=== PATIENT | male | born 1960 | race Caucasian/White ===

== ENCOUNTER 2020-12-29 09:08 | Inpatient (IN) ==
[2020-12-29] MEDS ORDERED: DEXTROSE 50% 25 GM/50 ML VIAL IV PRN (09:27)
[2020-12-29] MEDS ORDERED: GLUCAGON 1 MG VIAL IM PRN (09:27)
[2020-12-29] MEDS ORDERED: CLORAZEPATE 3.75 MG TABLET PO PRN (09:36)
[2020-12-29] MEDS ORDERED: NITROGLYCERIN SL 0.4 MG TABLET SL PRN (09:36)
[2020-12-29] MEDS ORDERED: MORPHINE 2 MG/1 ML SYRINGE IV PRN (09:36)
[2020-12-29 10:06] LABS: Basophils # 0.1 10*3/uL (0.0-0.2); Basophils % 1.1 % (0.0-0.8); Eosinophils # 0.3 10*3/uL (0.0-0.87); Eosinophils % 5.3 % (0.00-10.9); Hematocrit 46.8 VOL% (42.0-52.0); Hemoglobin 15.8 GM/DL (14.0-18.0); Immature Granulocytes % 0.4 %; Immature Granulocytes Absolute 0.02 #; Lymphocytes # 1.2 10*3/uL (1.4-4.0); Mean Corpuscular HGB Conc 33.8 GM/DL (32-36); Mean Corpuscular Volume 91.6 FL (87-102); Mean Platelet Volume 9.5 FL (9.6-12.0); Monocytes % 8.1 % (1.7-12.7); Neutrophils % 59.1 % (38.7-73.9); Platelet Count 284 T/CUMM (130-400); Red Blood Count 5.11 MC/CUMM (3.8-5.5); Red Cell Distribution Width 13.1 % (9.3-17.3); White Blood Count 4.7 T/CUMM (4-12)
[2020-12-29] MEDS: CHLORHEXIDINE 0.12% ORAL RINSE 60 ML BOTTLE SWISH/SPIT SCH ×2 (10:14→21:29)
[2020-12-29 10:42] LABS: Albumin 3.9 G/DL (3.4-5.0); Bilirubin,Total 0.4 MG/DL (0.20-1.00); Calcium 8.5 MG/DL (8.5-10.1); Osmolality,Calculated 273.8 MOS/KG (273-304); Potassium 3.9 MMOL/L (3.5-5.1); Total Protein 6.8 G/DL (6.4-8.2)
[2020-12-29] MEDS: INSULIN REGULAR 100 UNIT/ML SUBCUT SCH ×3 (11:17→21:30)
[2020-12-29] MEDS ORDERED: oxyCODONE/ACETAMINOPHEN 5-325 MG TABLET PO PRN (12:18)
[2020-12-29 13:25] LABS: ABG Base Excess 0.9 MMOL/L (-2.5-2.5); ABG HCO3 25.1 MMOL/L (20-26); ABG Oxygen Saturation 96.1 % (95-100); ABG PCO2 38.7 MM HG (35-48); ABG PH 7.429 (7.35-7.45); ABG PO2 82.6 MM HG (80-95); ABG TCO2 26.2 MMOL/L (23-27)
[2020-12-29] MEDS: CHLORHEXIDINE 4% SOLN 118 ML BOTTLE TOP SCH ×2 (15:02→21:30)
[2020-12-30] MEDS ORDERED: PAPAVERINE 60 MG/2 ML VIAL ONE (05:00)
[2020-12-30] MEDS ORDERED: CEFUROXIME INJ 1,500 MG in SODIUM CHLORIDE 0.9% 100 ML IV ONE (05:00)
[2020-12-30] MEDS ORDERED: VANCOMYCIN 1,000 MG VIAL ONE (05:01)
[2020-12-30] MEDS ORDERED: VANCOMYCIN 500 MG VIAL ONE (05:01)
[2020-12-30] MEDS ORDERED: LACTATED RINGERS 1,000 ML IV ONE ×2 (05:45→11:30)
[2020-12-30] MEDS ORDERED: CALCIUM CHLORIDE 1,000 MG/10 ML VIAL IV ONE (05:45)
[2020-12-30] MEDS ORDERED: ETOMIDATE 40 MG/20 ML VIAL IV ONE (05:45)
[2020-12-30] MEDS ORDERED: VECURONIUM 10 MG VIAL IV ONE ×4 (05:45→11:44)
[2020-12-30] MEDS ORDERED: LIDOCAINE 2% 5 ML VIAL ONE ×2 (05:45→10:35)
[2020-12-30] MEDS ORDERED: SODIUM CHLORIDE 0.9% 1,000 ML IV ONE ×2 (05:45→11:43)
[2020-12-30] MEDS ORDERED: MIDAZOLAM 10 MG/2 ML VIAL ONE ×4 (05:45→10:10)
[2020-12-30] MEDS ORDERED: SEVOFLURANE 1 UNIT/15 MINUTE INH ONE ×2 (05:45→11:42)
[2020-12-30] MEDS ORDERED: SUFentanil 250 MCG/5 ML AMP ONE ×2 (05:46→05:58)
[2020-12-30] MEDS ORDERED: AMINOCAPROIC ACID 5,000 MG/20 ML VIAL ONE ×2 (05:48→11:44)
[2020-12-30] MEDS ORDERED: FAMOTIDINE 20 MG TABLET PO ONE (06:00)
[2020-12-30] MEDS ORDERED: DIAZEPAM 5 MG TABLET PO ONE (06:00)
[2020-12-30 07:40] LABS: ABG Base Excess -0.5 MMOL/L (-2.5-2.5); ABG HCO3 25.4 MMOL/L (20-26); ABG Oxygen Saturation 99.3 % (95-100); ABG PCO2 46.7 MM HG (35-48); ABG PH 7.354 (7.35-7.45); ABG PO2 463.6 MM HG (80-95); ABG TCO2 26.9 MMOL/L (23-27); Glucose Heart Surgery 99 MG/DL (74-106); Hemoglobin Heart Surgery 14.7 G/DL (14.0-18.0); PCO2 Patient Temp Arterial 46.7 MMHG; PH Patient Temp Arterial 7.354; PO2 Patient Temp Arterial 463.6 MM HG; Patient Temperature 37 CELCIUS; Potassium Heart/CVR 3.8 MMOL/L (3.5-5.1); Sodium Heart/CVR 138 MMOL/L (135-145)
[2020-12-30] MEDS ORDERED: ePHEDrine 50 MG/ML VIAL ONE (07:42)
[2020-12-30 07:44] LABS: Bacteria,Urine Occasional /HPF (Few); Bilirubin,Urine Negative (Negative); Blood, Urine Negative (Negative); Glucose,Urine (UA) Negative (Negative); Ketones,Urine Negative (Negative); Nitrite,Urine Negative (Negative); Protein,Urine Negative; RBC,Urine <1 /HPF (0-4); Urine Appearance CLEAR (Clear); Urine Color Yellow (Yellow); Urine Specific Gravity 1.012 (1.001-1.035); Urine Urobilinogen < 2.0 EU/DL (0.2-1.0)
[2020-12-30] MEDS ORDERED: NITROPRUSSIDE 50 MG/2 ML VIAL ONE (08:37)
[2020-12-30] MEDS ORDERED: SODIUM BICARBONATE 50 MEQ/50 ML VIAL IV ONE ×2 (08:37→10:36)
[2020-12-30] MEDS ORDERED: PHENYLEPHRINE DRIP 40 MG/250 ML PREMIX IV ONE (08:38)
[2020-12-30] MEDS ORDERED: POTASSIUM CHLORIDE RIDER 20 MEQ/100 ML PREMIX IV ONE (08:38)
[2020-12-30] MEDS ORDERED: CALCIUM CHLORIDE 1,000 MG/10 ML SYRINGE IV ONE (08:38)
[2020-12-30] MEDS ORDERED: ALBUMIN 5% 25.0 GM/500 ML VIAL IV ONE (08:39)
[2020-12-30 09:02] LABS: Hematocrit Heart Surgery 31.4 PERCENT (42-52); Hemoglobin Heart Surgery 10.2 G/DL (14.0-18.0); PCO2 Patient Temp Venous 36.8 MM HG; PH Patient Temp Venous 7.436; PO2 Patient Temp Venous 39.8 MM HG; Potassium Heart/CVR 5.1 MMOL/L (3.5-5.1); VBG Base Excess 0.8 MEQ/L (0-4); VBG HCO3 24.8 MEQ/L (24-28); VBG Oxygen Saturation 77.7 %; VBG PCO2 40.5 MMHG (41-51); VBG PH 7.407; VBG PO2 45.7 MMHG (17-40); VBG Total CO2 23.2 MMOL/L
[2020-12-30 09:37] LABS: Hematocrit Heart Surgery 36.6 PERCENT (42-52); Hemoglobin Heart Surgery 11.9 G/DL (14.0-18.0); PCO2 Patient Temp Venous 33.3 MM HG; PH Patient Temp Venous 7.482; PO2 Patient Temp Venous 40.1 MM HG; Potassium Heart/CVR 5.1 MMOL/L (3.5-5.1); VBG Base Excess 1.9 MEQ/L (0-4); VBG HCO3 25.8 MEQ/L (24-28); VBG Oxygen Saturation 83.9 %; VBG PCO2 38.4 MMHG (41-51); VBG PH 7.438; VBG PO2 49.3 MMHG (17-40); VBG Total CO2 23.1 MMOL/L
[2020-12-30] MEDS ORDERED: THROMBIN TOPICAL (RECOMBINANT) 5,000 UNIT VIAL TOP ONE (09:53)
[2020-12-30 10:07] LABS: Hematocrit Heart Surgery 39.2 PERCENT (42-52); Hemoglobin Heart Surgery 12.7 G/DL (14.0-18.0); PCO2 Patient Temp Venous 37.3 MM HG; PH Patient Temp Venous 7.449; Potassium Heart/CVR 5.6 MMOL/L (3.5-5.1); VBG HCO3 25.7 MEQ/L (24-28); VBG Oxygen Saturation 74.6 %; VBG PCO2 37.3 MMHG (41-51); VBG PH 7.449; VBG Total CO2 22.7 MMOL/L
[2020-12-30] MEDS ORDERED: PROTAMINE SULFATE 250 MG/25 ML VIAL IV ONE (10:35)
[2020-12-30] MEDS ORDERED: ALBUMIN 25% 25 GM/100 ML VIAL IV ONE (10:35)
[2020-12-30] MEDS ORDERED: MAGNESIUM SULFATE 5 GM/10 ML VIAL IV ONE (10:35)
[2020-12-30] MEDS ORDERED: methylPREDNISolone SOD SUC 1,000 MG/8 ML VIAL ONE (10:35)
[2020-12-30] MEDS ORDERED: DEXTROSE 5% KCL 20 MEQ 20 MEQ/1,000 ML BAG IV ONE (10:35)
[2020-12-30] MEDS ORDERED: MANNITOL 100 GM/500 ML BAG IV ONE (10:35)
[2020-12-30] MEDS ORDERED: PROTAMINE SULFATE 50 MG/5 ML VIAL IV ONE (10:36)
[2020-12-30] MEDS ORDERED: FUROSEMIDE 20 MG/2 ML VIAL ONE (10:36)
[2020-12-30] MEDS ORDERED: HEPARIN 10,000 UNIT/10 ML VIAL ONE (10:36)
[2020-12-30 10:41] LABS: ABG Base Excess -2.4 MMOL/L (-2.5-2.5); ABG HCO3 22.6 MMOL/L (20-26); ABG Oxygen Saturation 96.9 % (95-100); ABG PCO2 39.9 MM HG (35-48); ABG PH 7.371 (7.35-7.45); ABG PO2 99.4 MM HG (80-95); ABG TCO2 23.8 MMOL/L (23-27); Glucose Heart Surgery 158 MG/DL (74-106); Hemoglobin Heart Surgery 12.6 G/DL (14.0-18.0); Ionized Calcium Arterial 1.13 MMOL/L (1.21-1.46); PCO2 Patient Temp Arterial 39.9 MMHG; PH Patient Temp Arterial 7.371; PO2 Patient Temp Arterial 99.4 MM HG; Patient Temperature 37 CELCIUS; Potassium Heart/CVR 4.3 MMOL/L (3.5-5.1); Sodium Heart/CVR 134 MMOL/L (135-145)
[2020-12-30] MEDS ORDERED: MINERAL OIL/PETROLATUM OPH OINT 3.5 GM TUBE ONE (11:42)
[2020-12-30] MEDS ORDERED: SODIUM CHLORIDE 0.9% 300 ML IV ONE (11:43)
[2020-12-30] MEDS ORDERED: SODIUM CHLORIDE 0.9% 250 ML IV ONE (11:44)
[2020-12-30] MEDS ORDERED: HEPARIN/NACL 0.9% 2 UNITS/ML 1,000 UNIT/500 ML BAG IV ONE (11:45)
[2020-12-30] MEDS ORDERED: ONDANSETRON 4 MG/2 ML VIAL IV PRN (11:46)
[2020-12-30] MEDS ORDERED: NITROPRUSSIDE 100 MG in DEXTROSE 5% 250 ML IV PRN (11:46)
[2020-12-30] MEDS ORDERED: PHENYLEPHRINE DRIP 40 MG/250 ML PREMIX IV PRN (11:46)
[2020-12-30] MEDS ORDERED: MIDAZOLAM 2 MG/2 ML VIAL IV PRN (11:46)
[2020-12-30] MEDS ORDERED: SODIUM CHLORIDE 0.45% 1,000 ML IV SCH ×2 (11:46)
[2020-12-30] MEDS ORDERED: VECURONIUM 10 MG VIAL IV PRN ×2 (11:46)
[2020-12-30] MEDS ORDERED: INSULIN REGULAR 100 UNIT/ML IV PRN (11:46)
[2020-12-30] MEDS ORDERED: DEXTROSE 50% 25 GM/50 ML VIAL IV PRN ×2 (11:46)
[2020-12-30] MEDS ORDERED: ACETAMINOPHEN 650 MG SUPP RECTAL PRN (11:46)
[2020-12-30] MEDS ORDERED: CHLORHEXIDINE 4% SOLN 118 ML BOTTLE TOP PRN (11:46)
[2020-12-30] MEDS ORDERED: INSULIN REGULAR 100 UNIT/ML IV ONE (11:46)
[2020-12-30] MEDS ORDERED: LACTATED RINGERS 250 ML IV PRN (11:46)
[2020-12-30] MEDS ORDERED: MAGNESIUM SULF RIDER 2 GM/50 ML PREMIX IV PRN (11:46)
[2020-12-30] MEDS ORDERED: MAGNESIUM SULF RIDER 4 GM/100 ML PREMIX IV PRN (11:46)
[2020-12-30] MEDS ORDERED: MIDAZOLAM 10 MG/2 ML VIAL IV PRN (11:46)
[2020-12-30] MEDS ORDERED: CALCIUM CHLORIDE 1,000 MG/10 ML SYRINGE IV PRN (11:46)
[2020-12-30] MEDS ORDERED: INSULIN REGULAR DRIP 100 ML IV SCH (11:46)
[2020-12-30] MEDS ORDERED: PHENYLEPHRINE DRIP 20 MG/250 ML PREMIX IV ONE (11:47)
[2020-12-30 11:56] LABS: ABG Base Excess -2.8 MMOL/L (-2.5-2.5); ABG HCO3 22.1 MMOL/L (20-26); ABG Oxygen Saturation 98.7 % (95-100); ABG PCO2 40.3 MM HG (35-48); ABG PH 7.356 (7.35-7.45); ABG TCO2 19.6 MMOL/L (23-27); Glucose Heart Surgery 149 MG/DL (74-106); Hematocrit Heart Surgery 41.9 PERCENT (42-52); Hemoglobin Heart Surgery 13.6 G/DL (14.0-18.0); Potassium Heart/CVR 3.8 MMOL/L (3.5-5.1)
[2020-12-30 12:05] LABS: Basophils % 0.3 % (0.0-0.8); Eosinophils # 0.1 10*3/uL (0.0-0.87); Eosinophils % 1.5 % (0.00-10.9); Hematocrit 41.2 VOL% (42.0-52.0); Immature Granulocytes % 0.6 %; Immature Granulocytes Absolute 0.04 #; Lymphocytes # 0.8 10*3/uL (1.4-4.0); Lymphocytes % 11.5 % (21.2-54.2); Mean Corpuscular HGB Conc 33.5 GM/DL (32-36); Mean Corpuscular Volume 92.2 FL (87-102); Mean Platelet Volume 9.6 FL (9.6-12.0); Neutrophils % 80.1 % (38.7-73.9); Platelet Count 274 T/CUMM (130-400); Red Blood Count 4.47 MC/CUMM (3.8-5.5); Red Cell Distribution Width 13.1 % (9.3-17.3)
[2020-12-30 12:11] LABS: Hemoglobin 13.8 GM/DL (14.0-18.0); White Blood Count 6.5 T/CUMM (4-12)
[2020-12-30] MEDS: POTASSIUM CHLORIDE RIDER 20 MEQ/100 ML PREMIX IV PRN ×4 (12:33→22:37)
[2020-12-30 12:47] LABS: Albumin 3.2 G/DL (3.4-5.0); Bilirubin,Total 0.7 MG/DL (0.20-1.00); Calcium 7.7 MG/DL (8.5-10.1); Osmolality,Calculated 282.3 MOS/KG (273-304); Total Protein 5.4 G/DL (6.4-8.2)
[2020-12-30 12:49] LABS: INR 1.1; PT Patient Result 12.5 SECS (10.5-12.0); Partial Thromboplastin Time 26.5 SECS (23.9-33.8)
[2020-12-30 13:00] LABS: CKMB % 3.7 %
[2020-12-30] MEDS ORDERED: AMIODARONE 200 MG TABLET PO ONE (13:00)
[2020-12-30 13:06] LABS: High Sensitive Troponin I* 5911.2 ng/L (0-78)
[2020-12-30] MEDS: POTASSIUM CHLORIDE RIDER 10 MEQ/100 ML PREMIX IV PRN ×2 (13:55→21:15)
[2020-12-30] MEDS: LACTATED RINGERS 1,000 ML IV PRN ×2 (14:00→17:30)
[2020-12-30 14:37] LABS: ABG Base Excess -2.2 MMOL/L (-2.5-2.5); ABG HCO3 22.5 MMOL/L (20-26); ABG Oxygen Saturation 97.9 % (95-100); ABG PCO2 46.7 MM HG (35-48); ABG PH 7.323 (7.35-7.45); ABG TCO2 21.2 MMOL/L (23-27); Glucose Heart Surgery 167 MG/DL (74-106); Hematocrit Heart Surgery 42.2 PERCENT (42-52); Hemoglobin Heart Surgery 13.8 G/DL (14.0-18.0); Potassium Heart/CVR 4.4 MMOL/L (3.5-5.1)
[2020-12-30 15:32] LABS: ABG Base Excess -3.1 MMOL/L (-2.5-2.5); ABG HCO3 21.9 MMOL/L (20-26); ABG Oxygen Saturation 97.3 % (95-100); ABG PCO2 40.8 MM HG (35-48); ABG PH 7.348 (7.35-7.45); ABG TCO2 19.4 MMOL/L (23-27); Glucose Heart Surgery 196 MG/DL (74-106); Hematocrit Heart Surgery 43.3 PERCENT (42-52); Hemoglobin Heart Surgery 14.1 G/DL (14.0-18.0); Potassium Heart/CVR 4.4 MMOL/L (3.5-5.1)
[2020-12-30] MEDS: ALBUMIN 5% 12.5 GM/250 ML VIAL IV PRN ×2 (15:34→16:03)
[2020-12-30] MEDS ORDERED: FUROSEMIDE 40 MG/4 ML VIAL ONE (18:30)
[2020-12-30] MEDS ORDERED: FUROSEMIDE 40 MG/4 ML VIAL IV ONE (18:30)
[2020-12-30] MEDS ORDERED: FUROSEMIDE 40 MG/4 ML VIAL IV PRN (19:33)
[2020-12-30] MEDS: CEFUROXIME INJ 1,500 MG in SODIUM CHLORIDE 0.9% 100 ML IV SCH (19:43)
[2020-12-30] MEDS: KETOROLAC 30 MG/1 ML VIAL IV SCH (19:46)
[2020-12-30 20:19] LABS: ABG Base Excess -1.6 MMOL/L (-2.5-2.5); ABG HCO3 23.1 MMOL/L (20-26); ABG PCO2 35.3 MM HG (35-48); ABG PH 7.413 (7.35-7.45); ABG PO2 87.3 MM HG (80-95); Glucose Heart Surgery 173 MG/DL (74-106); Hemoglobin Heart Surgery 11.7 G/DL (14.0-18.0); Potassium Heart/CVR 3.6 MMOL/L (3.5-5.1)
[2020-12-30] MEDS: SODIUM CHLORIDE 0.9% 1,000 ML IV SCH (20:23)
[2020-12-30] MEDS: INSULIN REGULAR 100 UNIT/ML SUBCUT SCH (20:23)
[2020-12-30] MEDS: CHLORHEXIDINE 0.12% ORAL RINSE 60 ML BOTTLE SWISH/SPIT SCH ×2 (20:24→20:42)
[2020-12-30] MEDS: CHLORHEXIDINE 4% SOLN 118 ML BOTTLE TOP SCH (20:24)
[2020-12-30 20:55] LABS: CKMB % 4.6 %
[2020-12-30] MEDS ORDERED: AMIODARONE 200 MG TABLET PO SCH (21:00)
[2020-12-30 21:02] LABS: High Sensitive Troponin I* 4930.3 ng/L (0-78)
[2020-12-30 22:14] LABS: ABG Base Excess -2.5 MMOL/L (-2.5-2.5); ABG HCO3 22.3 MMOL/L (20-26); ABG Oxygen Saturation 98.2 % (95-100); ABG PCO2 41.2 MM HG (35-48); ABG PH 7.354 (7.35-7.45); ABG TCO2 20.5 MMOL/L (23-27); Glucose Heart Surgery 151 MG/DL (74-106); Hematocrit Heart Surgery 36.5 PERCENT (42-52); Hemoglobin Heart Surgery 11.9 G/DL (14.0-18.0); Potassium Heart/CVR 4.1 MMOL/L (3.5-5.1)
[2020-12-30 23:22] LABS: ABG Base Excess -1.7 MMOL/L (-2.5-2.5); ABG Oxygen Saturation 97.7 % (95-100); ABG PCO2 40.3 MM HG (35-48); ABG PH 7.372 (7.35-7.45); Glucose Heart Surgery 131 MG/DL (74-106); Hematocrit Heart Surgery 35.1 PERCENT (42-52); Hemoglobin Heart Surgery 11.4 G/DL (14.0-18.0); Potassium Heart/CVR 4.5 MMOL/L (3.5-5.1)
[2020-12-30] MEDS: MORPHINE 10 MG/1 ML VIAL IV PRN (23:50)
[2020-12-30] MEDS ORDERED: MORPHINE 2 MG/1 ML SYRINGE ONE (23:51)
[2020-12-31 00:34] LABS: ABG Base Excess -1.4 MMOL/L (-2.5-2.5); ABG HCO3 23.2 MMOL/L (20-26); ABG PCO2 41.4 MM HG (35-48); ABG PH 7.368 (7.35-7.45); ABG TCO2 21.4 MMOL/L (23-27); Glucose Heart Surgery 127 MG/DL (74-106); Hematocrit Heart Surgery 35.1 PERCENT (42-52); Hemoglobin Heart Surgery 11.4 G/DL (14.0-18.0); Potassium Heart/CVR 4.5 MMOL/L (3.5-5.1)
[2020-12-31] MEDS: KETOROLAC 30 MG/1 ML VIAL IV SCH ×4 (01:08→20:35)
[2020-12-31] MEDS ORDERED: AMIODARONE 450 MG/9 ML VIAL IV ONE (02:25)
[2020-12-31] MEDS ORDERED: AMIODARONE 150 MG/3 ML VIAL ONE (02:26)
[2020-12-31] MEDS: METOPROLOL TARTRATE 50 MG TABLET PO SCH ×2 (02:30→09:48)
[2020-12-31] MEDS ORDERED: AMIODARONE INJ 450 MG in DEXTROSE 5% 241 ML IV SCH (02:30)
[2020-12-31] MEDS ORDERED: AMIODARONE INJ 100 MG in DEXTROSE 5% 100 ML IV ONE (02:30)
[2020-12-31] MEDS: MORPHINE 10 MG/1 ML VIAL IV PRN ×2 (03:37→05:30)
[2020-12-31 04:55] LABS: ABG Base Excess -0.6 MMOL/L (-2.5-2.5); ABG HCO3 23.9 MMOL/L (20-26); ABG Oxygen Saturation 98.2 % (95-100); ABG PCO2 40.6 MM HG (35-48); ABG PH 7.385 (7.35-7.45); ABG TCO2 21.7 MMOL/L (23-27); Glucose Heart Surgery 117 MG/DL (74-106); Hemoglobin Heart Surgery 11.7 G/DL (14.0-18.0); Potassium Heart/CVR 4.1 MMOL/L (3.5-5.1)
[2020-12-31 05:05] LABS: Basophils % 0.1 % (0.0-0.8); Hematocrit 34.7 VOL% (42.0-52.0); Hemoglobin 11.4 GM/DL (14.0-18.0); Immature Granulocytes % 0.6 %; Immature Granulocytes Absolute 0.08 #; Lymphocytes # 0.7 10*3/uL (1.4-4.0); Lymphocytes % 5.6 % (21.2-54.2); Mean Corpuscular HGB Conc 32.9 GM/DL (32-36); Mean Corpuscular Volume 94.3 FL (87-102); Monocytes % 5.8 % (1.7-12.7); Neutrophils % 87.9 % (38.7-73.9); Platelet Count 330 T/CUMM (130-400); Red Blood Count 3.68 MC/CUMM (3.8-5.5); Red Cell Distribution Width 13.8 % (9.3-17.3); White Blood Count 13.2 T/CUMM (4-12)
[2020-12-31 05:25] LABS: Albumin 3.9 G/DL (3.4-5.0); Bilirubin,Direct 0.11 MG/DL (0.0-0.20); Bilirubin,Total 0.5 MG/DL (0.20-1.00); Calcium 7.8 MG/DL (8.5-10.1); Osmolality,Calculated 280.4 MOS/KG (273-304); Potassium 4.1 MMOL/L (3.5-5.1); Total Protein 5.5 G/DL (6.4-8.2)
[2020-12-31 05:26] LABS: CKMB % 3.3 %
[2020-12-31 05:30] LABS: High Sensitive Troponin I* 4325.5 ng/L (0-78)
[2020-12-31] MEDS: POTASSIUM CHLORIDE RIDER 20 MEQ/100 ML PREMIX IV PRN (05:37)
[2020-12-31] MEDS: CEFUROXIME INJ 1,500 MG in SODIUM CHLORIDE 0.9% 100 ML IV SCH (06:16)
[2020-12-31] MEDS: CHLORHEXIDINE 0.12% ORAL RINSE 60 ML BOTTLE SWISH/SPIT SCH ×2 (09:00→20:43)
[2020-12-31] MEDS ORDERED: ZALEPLON 5 MG CAPSULE PO PRN (09:38)
[2020-12-31] MEDS ORDERED: GLUCAGON 1 MG VIAL IM PRN ×2 (09:38)
[2020-12-31] MEDS ORDERED: MAGNESIUM SULF RIDER 4 GM/100 ML PREMIX IV PRN (09:38)
[2020-12-31] MEDS ORDERED: POTASSIUM CHLORIDE 20 MEQ TABLET PO PRN (09:38)
[2020-12-31] MEDS ORDERED: ALUMINUM/MAGNES/SIMETH MAX STR 30 ML UDCUP PO PRN (09:38)
[2020-12-31] MEDS ORDERED: ACETAMINOPHEN 325 MG TABLET PO PRN (09:38)
[2020-12-31] MEDS ORDERED: MAGNESIUM SULF RIDER 2 GM/50 ML PREMIX IV PRN (09:38)
[2020-12-31] MEDS ORDERED: DEXTROSE 50% 25 GM/50 ML VIAL IV PRN ×2 (09:38)
[2020-12-31] MEDS ORDERED: ONDANSETRON 4 MG/2 ML VIAL IV PRN (09:38)
[2020-12-31] MEDS ORDERED: SODIUM CHLOR 0.45% KCL 20 MEQ 20 MEQ/1,000 ML BAG IV SCH (10:00)
[2020-12-31] MEDS: PHENYLEPHRINE DRIP 40 MG/250 ML PREMIX IV PRN (10:20)
[2020-12-31] MEDS ORDERED: ALBUMIN 5% 12.5 GM/250 ML VIAL IV ONE (10:28)
[2020-12-31] MEDS: ALBUMIN 5% 12.5 GM/250 ML VIAL IV PRN (10:46)
[2020-12-31] MEDS: AMIODARONE INJ 450 MG in DEXTROSE 5% 241 ML IV SCH (11:56)
[2020-12-31] MEDS: INSULIN REGULAR 100 UNIT/ML SUBCUT SCH ×3 (12:03→20:37)
[2020-12-31] MEDS ORDERED: CEFUROXIME INJ 1,500 MG in SODIUM CHLORIDE 0.9% 100 ML IV ONE (19:00)
[2020-12-31] MEDS: APIXABAN 5 MG TABLET PO SCH (20:34)
[2021-01-01] MEDS: AMIODARONE INJ 450 MG in DEXTROSE 5% 241 ML IV SCH ×2 (00:35→02:59)
[2021-01-01] MEDS ORDERED: PHENOL 1.4% THROAT SPRAY 177 ML BOTTLE PO PRN (02:00)
[2021-01-01] MEDS: KETOROLAC 30 MG/1 ML VIAL IV SCH ×4 (03:51→21:45)
[2021-01-01 04:12] LABS: Basophils % 0.1 % (0.0-0.8); Hematocrit 33.4 VOL% (42.0-52.0); Hemoglobin 10.9 GM/DL (14.0-18.0); Immature Granulocytes % 0.7 %; Immature Granulocytes Absolute 0.08 #; Lymphocytes # 0.9 10*3/uL (1.4-4.0); Lymphocytes % 7.2 % (21.2-54.2); Mean Corpuscular HGB Conc 32.6 GM/DL (32-36); Mean Corpuscular Volume 96.3 FL (87-102); Mean Platelet Volume 9.8 FL (9.6-12.0); Monocytes % 6.6 % (1.7-12.7); Neutrophils % 85.4 % (38.7-73.9); Platelet Count 285 T/CUMM (130-400); Red Blood Count 3.47 MC/CUMM (3.8-5.5); Red Cell Distribution Width 13.6 % (9.3-17.3)
[2021-01-01 04:32] LABS: Albumin 3.2 G/DL (3.4-5.0); Bilirubin,Direct 0.12 MG/DL (0.0-0.20); Bilirubin,Indirect 0.3 MG/DL (0.0-1.0); Bilirubin,Total 0.4 MG/DL (0.20-1.00); CKMB % 1.4 %; High Sensitive Troponin I* 1526.6 ng/L (0-78); Osmolality,Calculated 281.4 MOS/KG (273-304); Potassium 4.6 MMOL/L (3.5-5.1); Total Protein 5.5 G/DL (6.4-8.2)
[2021-01-01] MEDS ORDERED: FUROSEMIDE 40 MG/4 ML VIAL IV ONE (06:00)
[2021-01-01] MEDS: INSULIN REGULAR 100 UNIT/ML SUBCUT SCH ×4 (07:20→22:20)
[2021-01-01] MEDS ORDERED: ALBUMIN 5% 12.5 GM/250 ML VIAL IV ONE (08:21)
[2021-01-01] MEDS: ROSUVASTATIN 20 MG TABLET PO SCH (08:31)
[2021-01-01] MEDS: DOCUSATE SODIUM 100 MG CAPSULE PO SCH (08:31)
[2021-01-01] MEDS: PANTOPRAZOLE 40 MG TABLET PO SCH (08:32)
[2021-01-01] MEDS: ASPIRIN EC 81 MG TABLET PO SCH (08:32)
[2021-01-01] MEDS: APIXABAN 5 MG TABLET PO SCH ×2 (08:32→21:48)
[2021-01-01] MEDS: AMIODARONE 200 MG TABLET PO SCH ×2 (08:35→21:48)
[2021-01-01] MEDS ORDERED: ASPIRIN EC 325 MG TABLET PO SCH (09:00)
[2021-01-01] MEDS: FERROUS SULFATE 325 MG TABLET PO SCH (09:24)
[2021-01-01] MEDS: CHLORHEXIDINE 0.12% ORAL RINSE 60 ML BOTTLE SWISH/SPIT SCH ×2 (09:25→21:49)
[2021-01-01] MEDS: oxyCODONE/ACETAMINOPHEN 5-325 MG TABLET PO PRN ×2 (09:37→16:05)
[2021-01-01] MEDS: PHENYLEPHRINE DRIP 40 MG/250 ML PREMIX IV PRN (09:46)
[2021-01-02] MEDS: KETOROLAC 30 MG/1 ML VIAL IV SCH ×4 (03:44→21:56)
[2021-01-02 05:02] LABS: Basophils % 0.4 % (0.0-0.8); Eosinophils # 0.2 10*3/uL (0.0-0.87); Hemoglobin 10.3 GM/DL (14.0-18.0); Immature Granulocytes % 0.5 %; Immature Granulocytes Absolute 0.03 #; Lymphocytes # 1.4 10*3/uL (1.4-4.0); Lymphocytes % 24.6 % (21.2-54.2); Mean Corpuscular HGB Conc 32.2 GM/DL (32-36); Mean Corpuscular Volume 95.8 FL (87-102); Mean Platelet Volume 10.3 FL (9.6-12.0); Monocytes % 8.6 % (1.7-12.7); Neutrophils % 62.9 % (38.7-73.9); Platelet Count 202 T/CUMM (130-400); Red Blood Count 3.34 MC/CUMM (3.8-5.5); Red Cell Distribution Width 13.2 % (9.3-17.3); White Blood Count 5.6 T/CUMM (4-12)
[2021-01-02] MEDS: oxyCODONE/ACETAMINOPHEN 5-325 MG TABLET PO PRN ×2 (05:05→12:56)
[2021-01-02 06:03] LABS: Alanine Aminotransferase 29 U/L (16-61); Albumin 2.9 G/DL (3.4-5.0); Alkaline Phosphatase 32 U/L (45-117); Aspartate Amino Transferase 22 U/L (0-37); Bilirubin,Indirect 1.1 MG/DL (0.0-1.0); Blood Urea Nitrogen 23 MG/DL (7-18); Calcium 7.6 MG/DL (8.5-10.1); Carbon Dioxide 31 MMOL/L (21-32); Estimated Glom Filtration Rate 127 ML/MIN; Glucose 85 MG/DL (74-106); Osmolality,Calculated 283.3 MOS/KG (273-304); Sodium 141 MMOL/L (136-145)
[2021-01-02] MEDS: INSULIN REGULAR 100 UNIT/ML SUBCUT SCH ×4 (08:17→23:17)
[2021-01-02] MEDS ORDERED: METOPROLOL SUCCINATE XL 50 MG TABLET PO SCH (09:00)
[2021-01-02] MEDS: APIXABAN 5 MG TABLET PO SCH ×2 (09:02→21:56)
[2021-01-02] MEDS: ASPIRIN EC 81 MG TABLET PO SCH (09:02)
[2021-01-02] MEDS: FERROUS SULFATE 325 MG TABLET PO SCH (09:02)
[2021-01-02] MEDS: DOCUSATE SODIUM 100 MG CAPSULE PO SCH (09:02)
[2021-01-02] MEDS: ROSUVASTATIN 20 MG TABLET PO SCH (09:02)
[2021-01-02] MEDS: PANTOPRAZOLE 40 MG TABLET PO SCH (09:02)
[2021-01-02] MEDS: AMIODARONE 200 MG TABLET PO SCH ×2 (09:02→21:56)
[2021-01-02] MEDS: CHLORHEXIDINE 0.12% ORAL RINSE 60 ML BOTTLE SWISH/SPIT SCH ×2 (09:02→21:56)
[2021-01-02] MEDS ORDERED: MORPHINE 2 MG/1 ML SYRINGE IV ONE (11:15)
[2021-01-03] MEDS: MAGNESIUM HYDROXIDE SUSP 30 ML UDCUP PO PRN (01:43)
[2021-01-03] MEDS: oxyCODONE/ACETAMINOPHEN 5-325 MG TABLET PO PRN ×5 (01:43→21:59)
[2021-01-03 05:35] LABS: Basophils % 0.6 % (0.0-0.8); Eosinophils # 0.3 10*3/uL (0.0-0.87); Eosinophils % 5.7 % (0.00-10.9); Hematocrit 31.1 VOL% (42.0-52.0); Hemoglobin 10.2 GM/DL (14.0-18.0); Immature Granulocytes % 0.4 %; Immature Granulocytes Absolute 0.02 #; Lymphocytes # 1.2 10*3/uL (1.4-4.0); Lymphocytes % 22.7 % (21.2-54.2); Mean Corpuscular HGB Conc 32.8 GM/DL (32-36); Mean Corpuscular Volume 92.8 FL (87-102); Mean Platelet Volume 10.2 FL (9.6-12.0); Neutrophils % 62.6 % (38.7-73.9); Platelet Count 244 T/CUMM (130-400); Red Blood Count 3.35 MC/CUMM (3.8-5.5); Red Cell Distribution Width 13.1 % (9.3-17.3); White Blood Count 5.3 T/CUMM (4-12)
[2021-01-03 05:57] LABS: Calcium 8.1 MG/DL (8.5-10.1); Potassium 4.3 MMOL/L (3.5-5.1)
[2021-01-03 06:01] LABS: Osmolality,Calculated 277.7 MOS/KG (273-304)
[2021-01-03] MEDS: KETOROLAC 30 MG/1 ML VIAL IV SCH (07:45)
[2021-01-03] MEDS: METOPROLOL SUCCINATE XL 25 MG TABLET PO SCH (08:13)
[2021-01-03] MEDS: INSULIN REGULAR 100 UNIT/ML SUBCUT SCH ×4 (08:32→22:09)
[2021-01-03] MEDS: PANTOPRAZOLE 40 MG TABLET PO SCH (09:10)
[2021-01-03] MEDS: DOCUSATE SODIUM 100 MG CAPSULE PO SCH (09:10)
[2021-01-03] MEDS: APIXABAN 5 MG TABLET PO SCH ×2 (09:10→21:59)
[2021-01-03] MEDS: ASPIRIN EC 81 MG TABLET PO SCH (09:10)
[2021-01-03] MEDS: ROSUVASTATIN 20 MG TABLET PO SCH (09:10)
[2021-01-03] MEDS: FERROUS SULFATE 325 MG TABLET PO SCH (09:10)
[2021-01-03] MEDS: POLYETHYLENE GLYCOL POWDER 17 GM PACK PO SCH (09:11)
[2021-01-03] MEDS: CHLORHEXIDINE 0.12% ORAL RINSE 60 ML BOTTLE SWISH/SPIT SCH ×2 (09:11→21:59)
[2021-01-03] MEDS: AMIODARONE 200 MG TABLET PO SCH ×2 (09:11→21:59)
[2021-01-04 06:44] LABS: Basophils % 0.4 % (0.0-0.8); Eosinophils # 0.2 10*3/uL (0.0-0.87); Eosinophils % 4.4 % (0.00-10.9); Hematocrit 33.1 VOL% (42.0-52.0); Hemoglobin 11.2 GM/DL (14.0-18.0); Immature Granulocytes % 0.9 %; Immature Granulocytes Absolute 0.04 #; Lymphocytes % 21.1 % (21.2-54.2); Mean Corpuscular HGB Conc 33.8 GM/DL (32-36); Mean Corpuscular Volume 94.3 FL (87-102); Mean Platelet Volume 9.9 FL (9.6-12.0); Neutrophils % 65.2 % (38.7-73.9); Platelet Count 283 T/CUMM (130-400); Red Blood Count 3.51 MC/CUMM (3.8-5.5); Red Cell Distribution Width 13.2 % (9.3-17.3); White Blood Count 4.5 T/CUMM (4-12)
[2021-01-04 08:07] LABS: Alanine Aminotransferase 34 U/L (16-61); Albumin 3.3 G/DL (3.4-5.0); Alkaline Phosphatase 46 U/L (45-117); Aspartate Amino Transferase 18 U/L (0-37); Bilirubin,Indirect 0.5 MG/DL (0.0-1.0); Blood Urea Nitrogen 14 MG/DL (7-18); Calcium 8.4 MG/DL (8.5-10.1); Carbon Dioxide 30 MMOL/L (21-32); Estimated Glom Filtration Rate 135 ML/MIN; Glucose 90 MG/DL (74-106); Osmolality,Calculated 275.7 MOS/KG (273-304); Potassium 4.1 MMOL/L (3.5-5.1); Sodium 138 MMOL/L (136-145); Total Protein 5.9 G/DL (6.4-8.2)
[2021-01-04] MEDS: DOCUSATE SODIUM 100 MG CAPSULE PO SCH (09:48)
[2021-01-04] MEDS: APIXABAN 5 MG TABLET PO SCH ×2 (09:49→21:11)
[2021-01-04] MEDS: ROSUVASTATIN 20 MG TABLET PO SCH (09:49)
[2021-01-04] MEDS: CHLORHEXIDINE 0.12% ORAL RINSE 60 ML BOTTLE SWISH/SPIT SCH ×2 (09:49→21:13)
[2021-01-04] MEDS: ASPIRIN EC 81 MG TABLET PO SCH (09:49)
[2021-01-04] MEDS: AMIODARONE 200 MG TABLET PO SCH ×2 (09:49→21:11)
[2021-01-04] MEDS: FERROUS SULFATE 325 MG TABLET PO SCH (09:49)
[2021-01-04] MEDS: PANTOPRAZOLE 40 MG TABLET PO SCH (09:49)
[2021-01-04] MEDS: METOPROLOL SUCCINATE XL 25 MG TABLET PO SCH (09:49)
[2021-01-04] MEDS: POLYETHYLENE GLYCOL POWDER 17 GM PACK PO SCH (09:49)
[2021-01-04] MEDS: INSULIN REGULAR 100 UNIT/ML SUBCUT SCH ×4 (10:26→20:13)
[2021-01-04] MEDS: oxyCODONE/ACETAMINOPHEN 5-325 MG TABLET PO PRN ×2 (11:13→17:45)
[2021-01-05] MEDS: oxyCODONE/ACETAMINOPHEN 5-325 MG TABLET PO PRN ×2 (01:40→09:48)
[2021-01-05] MEDS: MAGNESIUM HYDROXIDE SUSP 30 ML UDCUP PO PRN (01:40)
[2021-01-05 06:32] LABS: Basophils % 0.4 % (0.0-0.8); Eosinophils # 0.3 10*3/uL (0.0-0.87); Eosinophils % 5.2 % (0.00-10.9); Hematocrit 34.3 VOL% (42.0-52.0); Hemoglobin 11.2 GM/DL (14.0-18.0); Immature Granulocytes % 1.2 %; Immature Granulocytes Absolute 0.06 #; Lymphocytes % 19.8 % (21.2-54.2); Mean Corpuscular HGB Conc 32.7 GM/DL (32-36); Mean Corpuscular Volume 94.8 FL (87-102); Mean Platelet Volume 10.1 FL (9.6-12.0); Monocytes % 9.4 % (1.7-12.7); Platelet Count 308 T/CUMM (130-400); Red Blood Count 3.62 MC/CUMM (3.8-5.5); Red Cell Distribution Width 13.2 % (9.3-17.3); White Blood Count 5.2 T/CUMM (4-12)
[2021-01-05 06:51] LABS: Alanine Aminotransferase 29 U/L (16-61); Albumin 3.3 G/DL (3.4-5.0); Alkaline Phosphatase 48 U/L (45-117); Aspartate Amino Transferase 14 U/L (0-37); Bilirubin,Direct < 0.100 MG/DL (0.0-0.20); Blood Urea Nitrogen 13 MG/DL (7-18); Calcium 8.7 MG/DL (8.5-10.1); Carbon Dioxide 31 MMOL/L (21-32); Estimated Glom Filtration Rate 126 ML/MIN; Glucose 101 MG/DL (74-106); Osmolality,Calculated 272.8 MOS/KG (273-304); Potassium 4.4 MMOL/L (3.5-5.1); Sodium 137 MMOL/L (136-145); Total Protein 6.1 G/DL (6.4-8.2)
[2021-01-05 06:53] LABS: Bilirubin,Indirect 0.6 MG/DL (0.0-1.0)
[2021-01-05 08:19] VITALS: BP 104/59
[2021-01-05] MEDS: INSULIN REGULAR 100 UNIT/ML SUBCUT SCH (08:19)
[2021-01-05] MEDS: DOCUSATE SODIUM 100 MG CAPSULE PO SCH (09:40)
[2021-01-05] MEDS: AMIODARONE 200 MG TABLET PO SCH (09:40)
[2021-01-05] MEDS: ROSUVASTATIN 20 MG TABLET PO SCH (09:40)
[2021-01-05] MEDS: POLYETHYLENE GLYCOL POWDER 17 GM PACK PO SCH (09:40)
[2021-01-05] MEDS: METOPROLOL SUCCINATE XL 25 MG TABLET PO SCH (09:40)
[2021-01-05] MEDS: PANTOPRAZOLE 40 MG TABLET PO SCH (09:40)
[2021-01-05] MEDS: ASPIRIN EC 81 MG TABLET PO SCH (09:41)
[2021-01-05] MEDS: FERROUS SULFATE 325 MG TABLET PO SCH (09:41)
[2021-01-05] MEDS: CHLORHEXIDINE 0.12% ORAL RINSE 60 ML BOTTLE SWISH/SPIT SCH (09:41)
[2021-01-05] MEDS: APIXABAN 5 MG TABLET PO SCH (09:41)
== END 2021-01-05 11:15 | disposition home health service (06) | DRG 236 ==
LOC: N.TELEN 09:08 → N.CVR 12-30 10:50 → N.ICU 12-31 12:26 → N.TELES 01-01 12:36